=== PATIENT | male | born 1980 | race Caucasian/White ===

== ENCOUNTER 2019-04-07 20:08 | Emergency (ER) | payer MEDICAID, SELFPAY ==
[2019-04-07 20:09] VITALS: BP 124/74; PULSE 106; RESP 16; TEMP 36.6; O2SAT 99; BMI 20.3
--- NOTE | 2019-04-07 20:50 | ED.VISSUMM ---
- ER Visit Summary Date of Service: 04/07/19 Chief Complaint: [Redness and swelling to the left arm] History of Present Illness: The patient is a 38 M [presents to the emergency department with redness and swelling that started yesterday. Patient states that he injected methamphetamines into his left arm. He denies any fever. Patient is diabetic. Patient states that he had some leftover Cipro that he started taking. States that he only uses methamphetamines occasionally.] Physical Examination: [HEENT-PERRLA, EOMI. Cranial nerves II through XII grossly intact. TMs clear. Mucous membranes moist. No adenopathy. Cardiovascular-regular rate and rhythm without murmur or ectopy Lungs-clear to auscultation, chest wall stable without crepitus or subcu emphysema Abdomen-normoactive bowel sounds, soft, nontender, no rebound or rigidity, no peritoneal signs. Extremities-intact ?4, normal range of motion, normal pulses. Left arm-patient has diffuse erythema to the posterior forearm with some mild soft tissue swelling. No discrete abscess noted. No lipogenic streaking. He is neurovascular intact distally. Test Results: [CBC with the patient awakened at 10.7, hemoglobin 14, hematocrit 41, placed 244. Chemistries unremarkable. Lactate was 1.0. No gas otherwise seen within the forearm.] Emergency Department Course and Treatment: [She was given Unasyn 3 g IV.] Treatment Plan: [Patient will be started on Keflex and Bactrim. Patient advised to follow-up with his primary care physician within next 2 to 3 days for wound check. Patient advised to return if the redness should extend beyond the area of permanent marker that we outlined the erythema with.] Disposition: [Discharged home in stable condition.] Impression: [Cellulitis left forearm IV drug abuse] This note was generated with [employer] dictation software. It may contain incorrect words, spelling, and punctuation that were not noted in review of the chart prior to signing ED Disposition - Plan for ED Patient: Referrals: Yves Stokes MD [Primary Care Provider] -
--- NOTE | 2019-04-07 20:56 | ED.RN ---
Nurse did not get blood cultures prior to antibiotic administration. dr. canela aware
[2019-04-07 21:07] LABS: Absolute Lymphocyte Count 1.44 X10^3/uL (0.83-4.51); Absolute Neutrophil Count 7.6 X10^3/uL (2.0-7.7); Basophil# 0.05 X10^3/uL; Basophil% 0.5 % (0-1); Eosinophil# 0.81 X10^3/uL; Eosinophils% 7.6 % (0-5); Hematocrit 40.6 % (40-54); Lymphocyte # 1.44 X10^3/ul (4.0); Lymphocyte % 13.5 % (19-41); Mean Corp Hgb Conc 34.5 g/dL (32-36); Mean Corpuscular Volume 84.2 fL (80-94); Mean Platelet Vol. 9.5 fl (6.2-12.0); Monocyte# 0.72 X10^3/uL; Monocyte% 6.7 % (0-10); NRBC Flagged by Analyzer 0 % (0-5); Neutrophil # 7.61 X10^3/uL (2.7-7.7); Neutrophil % 71.3 % (47-70); Platelet Count 244 K/mm3 (150-450); RBC Distribution Width CV 12.2 % (11.6-14.6); RBC Distribution Width SD 36.9 fl (35.1-43.9); Red Blood Count 4.82 M/mm3 (4.6-6.2); White Blood Count 10.7 K/mm3 (4.4-11.0)
[2019-04-07 21:21] LABS: Anion Gap 6 (5-15); BUN 18 mg/dL (7-18); BUN/Creat Ratio 18.9 RATIO (10-20); Chloride 98 mmol/L (98-107); Creatinine, Serum 0.95 mg/dL (0.70-1.30); EST Glomerular Filtration Rate 94 mL/min (>60); Est Glom Filt Rate - Afr Amer 114 mL/min (>60); Estimated Creatinine Clearance 102.46 ml/min; Glucose 392 mg/dL (74-106); Potassium 3.9 mmol/L (3.5-5.1); Sodium Level 132 mmol/L (136-145)
--- NOTE | 2019-04-07 21:43 | RAD_ITS ---
STUDY: X-RAY - LEFT RADIUS AND ULNA REASON FOR EXAM: Male, 38 years old. Abscess. TECHNIQUE: 2 view(s) of the forearm. COMPARISON: None. FINDINGS: No fracture or dislocation. No destructive bone changes. Dorsomedial soft tissue gas consistent with history of abscess. Moderate dorsomedial soft tissue swelling. RAD/Forearm 2 Views IMPRESSION: Soft tissue swelling and soft tissue gas consistent with abscess. No osseous abnormality. Electronically Signed: Adelia Johnston MD at 22:17 EST Tel , Service support ,
--- NOTE | 2019-04-07 21:58 | ED.DEP ---
ED Disposition - Plan for ED Patient: Instructions: Cellulitis Prescriptions: Smz/Tmp Ds [Bactrim Ds] 1 tab PO BID #20 tab Prescription Printed Cephalexin [Keflex] 500 mg PO Q6 #40 cap Prescription Printed Referrals: Yves Stokes MD [Primary Care Provider] - 1-2 Days if not improving
[2019-04-07 22:15] VITALS: PULSE 94; RESP 18
== END 2019-04-07 22:19 | disposition home or self-care (01) ==
PROVIDERS: Emergency Provider Emergency Medicine; Family Provider Family Medicine; PCP Family Medicine
DX: L03.114 Cellulitis of left upper limb (principal); F19.10 Other psychoactive substance abuse, uncomplicated; E11.9 Type 2 diabetes mellitus without complications
CPT/HCPCS: 73090; 80048; 83605; 85025; 96365; 99284; A4216; J0295

== ENCOUNTER 2019-12-26 21:53 | Emergency (ER) | payer MEDICAID, SELFPAY ==
[2019-12-26 21:54] VITALS: BP 152/86; PULSE 99; RESP 18; TEMP 36.1; O2SAT 100; BMI 22.0
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
[2019-12-26] MEDS: Penicillin Vk 250 MG Tablet 500 MG PO (22:48)
== END 2019-12-26 22:49 | disposition home or self-care (01) ==
PROVIDERS: Emergency Provider Emergency Medicine; PCP Family Medicine
DX: S01.511A Laceration without foreign body of lip, initial encounter (principal); Y04.2XXA Assault by strike against or bumped into by another person, initial encounter; Y93.9 Activity, unspecified; Y92.9 Unspecified place or not applicable; Y99.9 Unspecified external cause status; E10.9 Type 1 diabetes mellitus without complications; B19.20 Unspecified viral hepatitis C without hepatic coma; F17.200 Nicotine dependence, unspecified, uncomplicated; Z79.4 Long term (current) use of insulin
CPT/HCPCS: 99283

== ENCOUNTER → 2020-09-04 19:35 | Outpatient (CLI) | payer MEDICAID, SELFPAY | PROVIDERS: PCP Family Medicine; Visit Provider Physician Assistant | DX: L72.3 Sebaceous cyst (principal) | CPT/HCPCS: 87070; 87077; 87186; 87205 ==

== ENCOUNTER 2020-10-11 13:29 | Emergency (ER) | payer MEDICAID, SELFPAY ==
[2020-10-11 13:30] VITALS: BP 122/84; PULSE 91; RESP 16; TEMP 36.7; O2SAT 100; BMI 21.6
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
[2020-10-11 15:01] LABS: Bedside Glucose 256 mg/dL (70-110)
[2020-10-11 15:03] VITALS: BP 116/75; PULSE 71; RESP 16; O2SAT 99
== END 2020-10-11 15:06 | disposition home or self-care (01) ==
PROVIDERS: Emergency Provider Emergency Medicine; PCP Family Medicine
DX: E10.649 Type 1 diabetes mellitus with hypoglycemia without coma (principal); F17.200 Nicotine dependence, unspecified, uncomplicated; Z79.4 Long term (current) use of insulin
CPT/HCPCS: 82962; 99284

== ENCOUNTER → 2020-12-01 12:03 | Outpatient (CLI) | payer MEDICAID, SELFPAY ==
[2020-12-01 11:36] VITALS: BMI 21.6
[2020-12-01 12:54] LABS: Absolute Lymphocyte Count 1.66 X10^3/uL (0.83-4.51); Absolute Neutrophil Count 2.9 X10^3/uL (2.0-7.7); Basophil# 0.04 X10^3/uL; Basophil% 0.7 % (0-1); Eosinophil# 0.97 X10^3/uL; Eosinophils% 16.5 % (0-5); Hematocrit 39.5 % (40-54); Hemoglobin 13.1 g/dL (13.0-16.5); Lymphocyte # 1.66 X10^3/ul (0.83-4.51); Lymphocyte % 28.2 % (19-41); Mean Corp Hgb Conc 33.2 g/dL (32-36); Mean Corpuscular Hgb 28.9 pg (27.0-32.0); Mean Platelet Vol. 9.8 fl (6.2-12.0); Monocyte# 0.36 X10^3/uL; Monocyte% 6.1 % (0-10); NRBC Flagged by Analyzer 0 % (0-5); Neutrophil # 2.85 X10^3/uL (2.7-7.7); Neutrophil % 48.3 % (47-70); Platelet Count 287 K/mm3 (150-450); RBC Distribution Width CV 12.3 % (11.6-14.6); RBC Distribution Width SD 39.3 fl (35.1-43.9); Red Blood Count 4.54 M/mm3 (4.6-6.2); White Blood Count 5.9 K/mm3 (4.4-11.0)
[2020-12-01 13:34] LABS: ALB/GLOB Ratio 0.8 RATIO (0.9-2.4); AST(SGOT) 36 U/L (15-37); Alanine Aminotransfer ALT/SGPT 61 U/L (16-61); Albumin, Serum 3.1 g/dL (3.2-5.0); Alkaline Phosphatase 111 U/L (45-117); Anion Gap 4 (5-15); BUN 16 mg/dL (7-18); BUN/Creat Ratio 14.7 RATIO (10-20); Calcium,Total 8.7 mg/dL (8.5-10.1); Chloride 100 mmol/L (98-107); Cholesterol 159 mg/dL (200); Creatinine, Serum 1.09 mg/dL (0.70-1.30); EST Glomerular Filtration Rate 80 mL/min (>60); Est Glom Filt Rate - Afr Amer 97 mL/min (>60); Globulin 3.7 g/dL (2.2-4.2); Glucose 362 mg/dL (74-106); High Density Lipoprotein 45 mg/dL; Potassium 4.6 mmol/L (3.5-5.1); Protein, Total 6.8 g/dL (6.4-8.2); Sodium Level 134 mmol/L (136-145); Triglycerides 179 mg/dL; Very Low Density Lipoprotein 36 mg/dL (5-40)
[2020-12-01 16:26] LABS: Microalbumin:Creatinine Ratio 220.8 mg/g CRE (<30 mg/g CRE)
[2020-12-01 16:31] LABS: Amphetamine Urine VISTA POSITIVE (<1000 ng/mL); Barbiturate Urine VISTA NEGATIVE (< 200 ng/mL); Benzodiazepine Urine VISTA NEGATIVE (< 200 ng/mL); Cocaine Urine VISTA NEGATIVE (< 300 ng/mL); Ecstacy Urine VISTA POSITIVE (< 500 ng/mL); Methadone Urine VISTA NEGATIVE (< 300 ng/mL); PCP Urine VISTA NEGATIVE (< 25 ng/mL); THC Urine VISTA NEGATIVE (< 50 ng/mL); Vista UDS pH Range 7
[2020-12-02 14:41] LABS: HCV log 10 5.954 (.)
== END ==
PROVIDERS: PCP Internal Medicine; Referring Provider Internal Medicine; Visit Provider Internal Medicine
DX: E10.8 Type 1 diabetes mellitus with unspecified complications (principal); B19.20 Unspecified viral hepatitis C without hepatic coma
CPT/HCPCS: 36415; 80053; 80061; 80307; 82043; 82570; 85025; 87522

== ENCOUNTER 2020-12-08 11:19 | Emergency (ER) | payer MEDICAID, SELFPAY ==
[2020-12-01 11:36] VITALS: BMI 21.6
[2020-12-08 11:20] VITALS: BP 127/64; PULSE 101; RESP 14; TEMP 36.1; O2SAT 97; BMI 20.9
[2020-12-08] MEDS: Smz/Tmp Ds Tablet 1 TABLET PO (12:50)
[2020-12-08] MEDS: Lidocaine 1% (20 ml mdv) 20 ML Vial INFILT (12:50)
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
== END 2020-12-08 14:06 | disposition home or self-care (01) ==
PROVIDERS: Emergency Provider Emergency Medicine; PCP Internal Medicine
DX: L02.413 Cutaneous abscess of right upper limb (principal); E11.9 Type 2 diabetes mellitus without complications; F17.210 Nicotine dependence, cigarettes, uncomplicated; Z79.4 Long term (current) use of insulin; Z86.14 Personal history of Methicillin resistant Staphylococcus aureus infection
CPT/HCPCS: 10060; 99283

== ENCOUNTER 2022-10-14 03:10 | Emergency (ER) | payer MEDICAID, SELFPAY ==
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
[2022-10-14 08:59] VITALS: BP 110/88; PULSE 68; RESP 16; O2SAT 99
[2022-10-14 13:36] LABS: Bedside Glucose 227 mg/dL (74-106)
[2022-10-14 13:36] LABS: Bedside Glucose 121 mg/dL (74-106)
[2022-10-14 13:37] LABS: Bedside Glucose 226 mg/dL (74-106)
[2022-10-14 13:37] LABS: Bedside Glucose 90 mg/dL (74-106)
== END 2022-10-14 09:02 | disposition home or self-care (01) ==
PROVIDERS: Emergency Provider Emergency Medicine; PCP Family Medicine; Visit Provider Emergency Medicine
DX: T38.3X1A Poisoning by insulin and oral hypoglycemic [antidiabetic] drugs, accidental (unintentional), initial encounter (principal); E10.649 Type 1 diabetes mellitus with hypoglycemia without coma; Z79.4 Long term (current) use of insulin; F17.210 Nicotine dependence, cigarettes, uncomplicated
CPT/HCPCS: 36415; 82962; 99285; A4216

== ENCOUNTER 2024-01-28 00:39 | Emergency (ER) | payer MEDICAID, SELFPAY ==
[2024-01-28 00:40] VITALS: BP 130/81; PULSE 101; RESP 16; TEMP 36.1; O2SAT 100; BMI 21.1
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
[2024-01-28] MEDS: Lidocaine 1% (20 ml mdv) 20 ML Vial 4 ML INFILT (01:24)
[2024-01-28] MEDS: Diphth,Pertuss(Acell),Tet Vac 0.5 ML Vial IM (01:24)
== END 2024-01-28 01:29 | disposition home or self-care (01) ==
PROVIDERS: Emergency Provider Emergency Medicine; PCP Family Medicine; Visit Provider Emergency Medicine
DX: S61.210A Laceration without foreign body of right index finger without damage to nail, initial encounter (principal); E11.9 Type 2 diabetes mellitus without complications; Z79.4 Long term (current) use of insulin; F17.210 Nicotine dependence, cigarettes, uncomplicated; W26.0XXA Contact with knife, initial encounter; Y93.89 Activity, other specified
CPT/HCPCS: 12001; 90715; 99285

== ENCOUNTER 2024-05-23 10:39 | Emergency (ER) | payer MEDICAID, SELFPAY ==
[2024-05-23 10:40] VITALS: BP 101/88; PULSE 120; RESP 14; TEMP 37.1; O2SAT 94; BMI 20.3
--- NOTE | 2024-05-23 11:05 | EKG12_ITS ---
Test Reason : GEN ILLNESS Blood Pressure : */* mmHG Vent. Rate : 87 BPM Atrial Rate : 87 BPM P-R Int : 136 ms QRS Dur : 100 ms QT Int : 382 ms P-R-T Axes : 85 104 55 degrees QTcB Int : 459 ms Normal sinus rhythm Right atrial enlargement Rightward axis Pulmonary disease pattern Abnormal ECG Confirmed by LAUREN CLAY, LACHO ([id number]), editor news LOVE CONTRERAS ([id number]) on 05/25/2024 6:23:57 AM Referred By: Confirmed By: LACHO AGUILAR MD
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
[2024-05-23 11:14] LABS: Absolute Lymphocyte Count 0.93 X10^3/uL (0.83-4.51); Basophil# 0.07 X10^3/uL; Basophil% 0.5 % (0-1); Eosinophils% 3.3 % (0-5); Hematocrit 49.9 % (40-54); Lymphocyte # 0.93 X10^3/ul (0.83-4.51); Mean Corp Hgb Conc 34.1 g/dL (32-36); Mean Corpuscular Hgb 28.8 pg (27.0-32.0); Mean Corpuscular Volume 84.4 fL (80-94); Mean Platelet Vol. 9.4 fl (6.2-12.0); Monocyte# 0.83 X10^3/uL; Monocyte% 5.4 % (0-10); NRBC Flagged by Analyzer 0 % (0-5); Neutrophil # 12.96 X10^3/uL (2.7-7.7); Neutrophil % 84.2 % (47-70); Platelet Count 365 K/mm3 (150-450); RBC Distribution Width CV 12.5 % (11.6-14.6); RBC Distribution Width SD 37.8 fl (35.1-43.9); Red Blood Count 5.91 M/mm3 (4.6-6.2); White Blood Count 15.4 K/mm3 (4.4-11.0)
[2024-05-23] MEDS: 0.9% Normal Saline (1000mL) 1,000 ML 1000 ML IV (11:15)
[2024-05-23] MEDS: Ondansetron 4 MG/2 ML Vial IV (11:15)
[2024-05-23 11:16] LABS: Bedside Glucose 275 mg/dL (74-106)
[2024-05-23 11:23] VITALS: BP 94/67; PULSE 85; RESP 12; O2SAT 100
[2024-05-23 11:38] LABS: AST(SGOT) 57 U/L (15-37); Alanine Aminotransfer ALT/SGPT 111 U/L (16-61); Albumin, Serum 3.9 g/dL (3.2-5.0); Alkaline Phosphatase 145 U/L (45-117); Anion Gap 8 (5-15); BUN 19 mg/dL (7-18); BUN/Creat Ratio 11.1 RATIO (10-20); Bilirubin, Direct 0.16 mg/dL (0.00-0.30); Chloride 99 mmol/L (98-107); Creatinine, Serum 1.71 mg/dL (0.70-1.30); EST Glomerular Filtration Rate 47 mL/min (>60); Est Glom Filt Rate - Afr Amer 57 mL/min (>60); Estimated Creatinine Clearance 54.16 ml/min; Globulin 4.8 g/dL (2.2-4.2); Glucose 297 mg/dL (74-106); Protein, Total 8.7 g/dL (6.4-8.2); Sodium Level 134 mmol/L (136-145)
[2024-05-23 12:08] VITALS: BP 108/56; PULSE 94; RESP 16; O2SAT 100
[2024-05-23] MEDS: 0.9% Normal Saline (1000mL) 1,000 ML 250 ML IV (12:08)
[2024-05-23 13:07] VITALS: BP 122/71
== END 2024-05-23 13:08 | disposition home or self-care (01) ==
PROVIDERS: Emergency Provider Emergency Medicine; PCP Family Medicine; Visit Provider Emergency Medicine
DX: R19.7 Diarrhea, unspecified (principal); E11.9 Type 2 diabetes mellitus without complications; Z79.4 Long term (current) use of insulin; R55 Syncope and collapse; R10.9 Unspecified abdominal pain; F17.210 Nicotine dependence, cigarettes, uncomplicated; F12.90 Cannabis use, unspecified, uncomplicated
CPT/HCPCS: 80048; 80076; 82009; 82962; 85025; 93005; 96361; 96374; 99284; A4216; J2405

== ENCOUNTER 2024-07-06 18:13 | Emergency (ER) | payer OTHER, MEDICAID, SELFPAY ==
[2024-07-06 18:14] VITALS: BP 103/68; PULSE 122; RESP 16; TEMP 36; O2SAT 98; BMI 21.2
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
[2024-07-06 19:02] LABS: Bedside Glucose 171 mg/dL (74-106)
[2024-07-06] MEDS: Ondansetron 4 MG/2 ML Vial IV (19:19)
[2024-07-06] MEDS: 0.9% Normal Saline (1000mL) 1,000 ML 1000 ML IV (19:19)
[2024-07-06 19:24] LABS: Absolute Lymphocyte Count 0.87 X10^3/uL (0.83-4.51); Absolute Neutrophil Count 4.1 X10^3/uL (2.0-7.7); Basophil# 0.04 X10^3/uL; Basophil% 0.7 % (0-1); Eosinophil# 0.28 X10^3/uL; Eosinophils% 4.7 % (0-5); Hematocrit 37.9 % (40-54); Hemoglobin 13.2 g/dL (13.0-16.5); Lymphocyte # 0.87 X10^3/ul (0.83-4.51); Lymphocyte % 14.5 % (19-41); Mean Corp Hgb Conc 34.8 g/dL (32-36); Mean Corpuscular Hgb 29.2 pg (27.0-32.0); Mean Corpuscular Volume 83.8 fL (80-94); Mean Platelet Vol. 9.5 fl (6.2-12.0); Monocyte# 0.68 X10^3/uL; Monocyte% 11.4 % (0-10); NRBC Flagged by Analyzer 0 % (0-5); Neutrophil # 4.09 X10^3/uL (2.7-7.7); Neutrophil % 68.2 % (47-70); Platelet Count 268 K/mm3 (150-450); RBC Distribution Width CV 12.7 % (11.6-14.6); RBC Distribution Width SD 38.7 fl (35.1-43.9); Red Blood Count 4.52 M/mm3 (4.6-6.2)
[2024-07-06 19:25] LABS: Blood Gas Specimen Type VEN; O2 Delivery Device Room Air; SITE Not entered; VBG BASE EXCESS -1 mmol/L (-1.0-3.5); VBG Bicarbonate 24 mmol/L (22-26); VBG PO2 54 mmHg (25-40); VBG SO2 87 % (50-70); VBG TCO2 25 mmol/L (23-33); VBG pH 7.37 (7.32-7.42)
[2024-07-06 19:36] LABS: Anion Gap 6 (5-15); BUN 17 mg/dL (7-18); BUN/Creat Ratio 16.8 RATIO (10-20); Calcium,Total 8.5 mg/dL (8.5-10.1); Chloride 104 mmol/L (98-107); Creatinine, Serum 1.01 mg/dL (0.70-1.30); EST Glomerular Filtration Rate 86 mL/min (>60); Est Glom Filt Rate - Afr Amer 104 mL/min (>60); Estimated Creatinine Clearance 94.51 ml/min; Glucose 179 mg/dL (74-106); Potassium 3.7 mmol/L (3.5-5.1); Sodium Level 135 mmol/L (136-145)
[2024-07-06 19:55] LABS: Bacteria 0 SEEN /hpf (None Seen); Squamous Epithelial Cells - UA 0 SEEN /hpf (0-5)
--- NOTE | 2024-07-06 19:55 | CT_ITS ---
PROCEDURE: ABDOMEN/PELVIS W IV CONT ONLY REASON FOR EXAM: Abdominal pain TECHNIQUE: Abdomen and pelvis CT with intravenous contrast. Multiplanar reconstructions were performed. COMPARISON: None. FINDINGS: Lower chest: Unremarkable. Liver: Unremarkable. Biliary/gallbladder: There are multiple gallstones in the gallbladder lumen. Pancreas: Unremarkable. Spleen: Unremarkable. Adrenal glands: Unremarkable. Kidneys: Unremarkable. Gastrointestinal/peritoneum: There are multiple dilated loops of small bowel, mostly ileal loops in the right hemiabdomen measuring up to 3.3 cm in diameter. There is no discrete transition point.The appendix is unremarkable.No free air or free fluid. Vascular: Unremarkable. Lymph nodes: No enlarged lymph nodes by CT size criteria. Pelvic organs: Unremarkable. Bladder: Mild diffuse bladder wall thickening, which is somewhat exaggerated by partial distention. Bones: Unremarkable. Soft tissues: Unremarkable. CT/Abdomen/Pelvis W IV Cont ONLY IMPRESSION: 1. Multiple dilated loops of small bowel in the right hemiabdomen without a tra nsition point, possibly due to ileus. 2. Mild diffuse bladder wall thickening, somewhat exaggerated by partial disten tion. Correlate clinically to exclude cystitis. 3. Cholelithiasis. Reading Location: [facility]
[2024-07-06 19:57] LABS: Glucose, Dipstick 100 mg/dl (Normal); Ketone-Dipstick 5 mg/dl (Negative); Leukocyte Esterase-Dipstick 25 /ul (Negative); Nitrite-Dipstick Positive (Negative); Occult Blood-Urine 10 /ul (Negative); Protein-Dipstick 100 mg/dl (Negative); Urine Clarity Clear (Clear); Urine Urobilinogen 1 mg/dl (Normal)
[2024-07-06 20:03] LABS: Urine Bilirubin Dipstick 3 mg/dL (Negative)
[2024-07-06 20:04] LABS: Color, Urine Amber (Yellow)
[2024-07-06 20:13] VITALS: BP 122/71; PULSE 103; O2SAT 98
[2024-07-06 20:31] LABS: Hyaline Cast 25-50 SEEN /lpf (0-5); Mucous, Urine 1+ /hpf (<or=2+); Red Blood Cells-Urine 0-5 SEEN /hpf (0-5); White Blood Cells 0-5 SEEN /hpf (0-5)
[2024-07-06 20:32] LABS: Amorphous Sediment 1+ URATE; Coarse Granular Cast 5-10 SEEN /lpf (0-5 /lpf); Fine Granular Cast- Urine 5-10 SEEN /lpf (0-5)
[2024-07-06 21:22] VITALS: BP 131/74; PULSE 102; RESP 18; TEMP 36.3; O2SAT 99
== END 2024-07-06 21:25 | disposition home or self-care (01) ==
PROVIDERS: Emergency Provider Emergency Medicine; PCP Family Medicine; Visit Provider Emergency Medicine
DX: R10.9 Unspecified abdominal pain (principal); E10.9 Type 1 diabetes mellitus without complications; Z79.4 Long term (current) use of insulin; R11.0 Nausea; F17.210 Nicotine dependence, cigarettes, uncomplicated; F12.90 Cannabis use, unspecified, uncomplicated; R19.7 Diarrhea, unspecified
CPT/HCPCS: 74177; 80048; 81001; 82009; 82803; 82962; 85025; 87631; 96361; 96374; 99282; Q9967; A4216; J2405

== ENCOUNTER 2025-03-01 10:48 | Emergency (ER) | payer MEDICAID, SELFPAY ==
[2025-03-01 10:50] VITALS: BP 107/93; PULSE 95; RESP 18; TEMP 36.6; O2SAT 100; BMI 21.8
[2025-03-01 11:01] VITALS: BP 109/75
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
[2025-03-01 11:21] LABS: Hematocrit 46.5 % (40-54); Hemoglobin 15.7 g/dL (13.0-16.5); Immature Granulocytes Count 0.060 X10^3/uL (0.0-0.0); Mean Corp Hgb Conc 33.8 g/dL (32-36); Mean Corpuscular Volume 85.6 fL (80-94); Mean Platelet Vol. 9.3 fl (6.2-12.0); NRBC Flagged by Analyzer 0 % (0-5); POSITIVE DIFFERENTIAL YES; Platelet Count 362 K/mm3 (150-450); RBC Distribution Width CV 12.8 % (11.6-14.6); RBC Distribution Width SD 39.4 fl (35.1-43.9); Red Blood Count 5.43 M/mm3 (4.6-6.2); White Blood Count 12.7 K/mm3 (4.4-11.0)
[2025-03-01 11:46] LABS: AST(SGOT) 72 U/L (<=37); Alanine Aminotransfer ALT/SGPT 108 U/L (<=46); Albumin, Serum 4.1 g/dL (3.5-5.0); Alcohol, Blood (Medical)-Serum < 10.1 mg/dL (<=10.0); Alkaline Phosphatase 139 U/L (40-129); Anion Gap 12 (5-15); BUN 21 mg/dL (4-19); BUN/Creat Ratio 14.7 RATIO (10-20); Calcium,Total 9.7 mg/dL (7.6-11.0); Carbon Dioxide 23.6 mmol/L (21.0-32.0); Chloride 105 mmol/L (98-108); Estimated Creatinine Clearance 68.39 ml/min (50-250); Globulin 3.6 g/dL (2.2-4.2); Glucose 61 mg/dL (70-99); Lipase 11 U/L (13-75); Potassium 3.3 mmol/L (3.3-5.1)
--- NOTE | 2025-03-01 12:20 | CT_ITS ---
PROCEDURE: ABDOMEN/PELVIS W IV CONT ONLY 03/01/2025 REASON FOR EXAM: ABD PAIN TECHNIQUE: Procedure Code: [id number] Modality: CT Procedure: ABDOMEN/PELVIS W IV CONT ONLY Coronal and Sagittal reconstruction series were provided. CONTRAST: Isovue-300 VOLUME: 96 mL One or more dose reduction techniques were used (e.g., Automated exposure control, adjustment of the mA and/or kV according to patient size, use of iterative reconstruction technique. RADIATION DOSE SUMMARY: CTDlvol: 18 mGy DLP: 413 mGycm COMPARISON: July 06, 2024 FINDINGS: Lung bases: Clear Liver: Normal Gallbladder: Multiple calculi within the gallbladder lumen. No wall thickening. No biliary ductal dilation. Spleen: Normal Pancreas: Normal Adrenals: Normal Kidneys: Normal Bladder: Normal. Reproductive Organs: Normal Bowel: Stomach is mildly distended and fluid-filled. Proximal and mid small bowel loops are not dilated. More distal small bowel loops are not particularly dilated but are fluid-filled without any wall thickening, pneumatosis. The contents of the colon are fluid suggesting a diarrheal state. Appendix: Normal Lymph nodes: None appear enlarged. Vasculature: Normal Peritoneum / Retroperitoneum: No free air, free fluid or mass Bones: Unremarkable CT/Abdomen/Pelvis W IV Cont ONLY IMPRESSION: Fluid-filled loops of distal small bowel. Fluid-filled colon. No transition p oint to suggest a mechanical obstruction seen. A similar finding was seen on prior exam. The degree of involvement of the small bowel is less on today's exam. Consider small-bowel ileus, partial small bowel obstruction and colonic diarrheal state. Correlate with CT of July 06, 2024. Reading Location: [id number]
--- NOTE | 2025-03-01 12:25 | RAD_ITS ---
PROCEDURE: CHEST PA AND LATERAL 03/01/2025 REASON FOR EXAM: RULE OUT PNEUMONIA TECHNIQUE: Procedure Code: RADCXR Modality: DX Procedure: CHEST PA AND LATERAL COMPARISON: None FINDINGS: Hardware: Bilateral nipple piercings. Heart: Normal Mediastinum: The mediastinal contour is unremarkable. Lungs: The lungs are clear. Bones: The bones are unremarkable. RAD/Chest PA and Lateral IMPRESSION: No acute cardiopulmonary process Reading Location: [id number]
[2025-03-01 13:00] VITALS: BP 120/75; PULSE 97; RESP 18; O2SAT 100
[2025-03-01 14:00] VITALS: BP 137/99; PULSE 99; O2SAT 100
[2025-03-01 14:07] LABS: Mucous, Urine 0 SEEN /hpf (<or=2+)
[2025-03-01 14:10] LABS: Color, Urine Yellow (Yellow); Glucose, Dipstick 250 mg/dl (Normal); Ketone-Dipstick Negative (Negative); Leukocyte Esterase-Dipstick Negative /ul (Negative); Nitrite-Dipstick Negative (Negative); Occult Blood-Urine 10 /ul (Negative); Protein-Dipstick 100 mg/dl (Negative); Specific Gravity, Urine 1.015 (1.002-1.030); Urine Bilirubin Dipstick Negative (Negative)
[2025-03-01 14:36] LABS: Red Blood Cells-Urine 0-5 SEEN /hpf (0-5); Squamous Epithelial Cells - UA 0-5 SEEN /hpf (0-5)
[2025-03-01 15:00] VITALS: BP 108/88; PULSE 103; RESP 16; O2SAT 99
--- NOTE | 2025-03-01 15:53 | ED.RN ---
pt was given 1 L NS during stay
[2025-03-01 15:56] VITALS: BP 132/88; PULSE 95; RESP 18; TEMP 36.8; O2SAT 100
== END 2025-03-01 15:59 | disposition home or self-care (01) ==
PROVIDERS: Emergency Provider Student in an Organized Health Care Education/Training Program; PCP Family Medicine; Visit Provider Student in an Organized Health Care Education/Training Program
DX: E10.649 Type 1 diabetes mellitus with hypoglycemia without coma (principal); Z79.4 Long term (current) use of insulin; R11.2 Nausea with vomiting, unspecified; R10.9 Unspecified abdominal pain; R19.7 Diarrhea, unspecified; F17.210 Nicotine dependence, cigarettes, uncomplicated; F12.90 Cannabis use, unspecified, uncomplicated
CPT/HCPCS: 71046; 74177; 80053; 81001; 82077; 82962; 83605; 83690; 85025; 93005; 99285; Q9967; A4216

== ENCOUNTER 2025-05-01 00:57 | Emergency (ER) | payer MEDICAID, SELFPAY ==
[2025-05-01 00:58] VITALS: BP 210/109; PULSE 96; RESP 16; TEMP 36.4; O2SAT 100; BMI 20.5
[2025-05-01 01:01] VITALS: BP 184/96
[2025-05-01] MEDS: Lidocaine 2% /Epi 1:100 (20ml) 20 ML VIAL INFILT (01:24)
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
--- OUTSIDE RECORDS SUMMARY | 2025-05-01 01:24 | XMS RPT_ITS | CCD ---
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 Date Expiration Date Visits Requested Visits Authorized [id number] Authorized PCP Requested Referral 08/30/2022 08/30/2023 1 1 Specialty Diagnoses / Procedures Referred By Contac t Referred To Contact Endocrinology Diagnoses Type 1 diabetes mellitus without complication (HCC) Procedures CONSULT TO ENDOCRINOLOGY OFFICE/OUTPATIENT [facility] 60-74 MINUTES Letha Stokes MD [address] [place] [address] Referral ID Status Reason Start Date Expiration Date Visits Requested Visits Authorized [id number] Authorized PCP Requested Referral 08/30/2022 08/30/2023 1 1 Specialty Diagnoses / Procedures Referred By Contac t Referred To Contact Diagnoses Type 1 diabetes mellitus without complication (HCC) Procedures CONSULT TO DIABETES EDUCATION DSME/MNT MEDICAL NUTRITION ASSMT&IVNTJ INDIV EACH 15 NC MEDICAL NUTRITION ASSMT&IVNTJ INDIV EACH 15 [place] MEDICAL NUTRITION ASSMT&IVNTJ INDIV EACH 15 [place] MEDICAL NUTRITION ASSMT&IVNTJ INDIV EACH 15 NC Laura Cook, P[employer]HANGER [employer]GAN FIXER [address] [place] [address] Referral ID Status Reason Start Date Expiration Date Visits Requested Visits Authorized [id number] Authorized PCP Requested Referral 09/09/2022 09/09/2023 1 1 Specialty Diagnoses / Procedures Referred By Contac t Referred To Contact Diagnoses Type 1 diabetes mellitus without complication (HCC) Laura Cook, P[employer]HANGER [employer]GAN [employer]ER [address] [place] [address] Referral ID Status Reason Start Date Expiration Date Visits Re quested Visits Authorized [id number] Closed 1 1 Specialty Diagnoses / Procedures Referred By Contac t Referred To Contact Ophthalmology Diagnoses Type 1 diabetes mellitus without complication (HCC) Procedures CONSULT TO OPHTHALMOLOGY OFFICE/OUTPATIENT NEW [facility]IGH MDM 60 MINUTES Laura Cook P[employer]ER [employer]ER [address] [place] [id number] Referral ID Status Reason Start Date Expiration Date Visits Requested Visits Authorized [id number] Authorized PCP Requested Referral 08/31/2023 11/29/2023 1 1 Specialty Diagnoses / Procedures Referred By Contac t Referred To Contact Diagnoses Poorly controlled type 1 diabetes mellitus (HCC) Procedures ENDOCRINOLOGY DIETITIAN VISIT (MNT) MEDICAL NUTRITION ASSMT&IVNTJ INDIV EACH 15 [place] MEDICAL NUTRITION ASSMT&IVNTJ INDIV EACH 15 [place] MEDICAL NUTRITION ASSMT&IVNTJ INDIV EACH 15 [place] MEDICAL NUTRITION ASSMT&IVNTJ INDIV EACH 15 [place] Laura Cook, P[employer]HANGER [employer]ER [address] [place] [id number] Referral ID Status Reason Start Date Expiration Date Visits Requested Visits Authorized [id number] Authorized PCP Requested Referral 06/20/2024 06/20/2025 1 1 Chief Complaint and Reason for Visit Chief Complaint Admit Date n/v/d March 01, 2025 1 0:48am Additional Source Comments (unrecognized sect ion and content) No Status Records FoundNo Status Records FoundNo Status Records FoundNo Status Records FoundNo Status Records Found INFORMATION SOURCE (unrecogn ized section and content) DATE CREATED AUTHOR 11/15/2017 [facility] DATE CREATED AUTHOR AUTHOR'S ORGANIZ ATION 08/22/2024 [facility] DATE CREATED AUTHOR AUTHOR'S ORGANIZ ATION 03/08/2025 [facility] DATE CREATED AUTHOR AUTHOR'S ORGANIZ ATION 03/09/2025 [facility] Source Comments (unrecognize d section and content) In the event this informatio n is protected by the Federal Confidentiality of Alcohol and Drug Abuse Patient Records regulations: The Federal rules restrict any use of the information to criminally investigate or prosecute any alcohol or drug abuse patient.[facility] Hospital[facility] the event this information is protected by the Federal Confidentiality of Alcohol and Drug Abuse Patient Records regulations: The Federal rules restrict any use of the information to criminally investigate or prosecute any alcohol or drug abuse patient.[facility] HospitalIn the event this information is protected by the Federal Confidentiality of Alcohol and Drug Abuse Patient Records regulations: The Federal rules restrict any use of the information to criminally investigate or prosecute any alcohol or drug abuse patient.[facility] HospitalIn the event this information is protected by the Federal Confidentiality of Alcohol and Drug Abuse Patient Records regulations: The Federal rules restrict any use of the information to criminally investigate or prosecute any alcohol or drug abuse patient.[facility] HospitalIn the event this information is protected by the Federal Confidentiality of Alcohol and Drug Abuse Patient Records regulations: The Federal rules restrict any use of the information to criminally investigate or prosecute any alcohol or drug abuse patient.[facility] HospitalIn the event this information is protected by the Federal Confidentiality of Alcohol and Drug Abuse Patient Records regulations: The Federal rules restrict any use of the information to criminally investigate or prosecute any alcohol or drug abuse patient.[facility] HospitalIn the event this information is protected by the Federal Confidentiality of Alcohol and Drug Abuse Patient Records regulations: The Federal rules restrict any use of the information to criminally investigate or prosecute any alcohol or drug abuse patient.[facility] HospitalIn the event this information is protected by the Federal Confidentiality of Alcohol and Drug Abuse Patient Records regulations: The Federal rules restrict any use of the information to criminally investigate or prosecute any alcohol or drug abuse patient.[facility] HospitalIn the event this information is protected by the Federal Confidentiality of Alcohol and Drug Abuse Patient Records regulations: The Federal rules restrict any use of the information to criminally investigate or prosecute any alcohol or drug abuse patient.[facility] HospitalIn the event this information is protected by the Federal Confidentiality of Alcohol and Drug Abuse Patient Records regulations: The Federal rules restrict any use of the information to criminally investigate or prosecute any alcohol or drug abuse patient.[facility] HospitalIn the event this information is protected by the Federal Confidentiality of Alcohol and Drug Abuse Patient Records regulations: The Federal rules restrict any use of the information to criminally investigate or prosecute any alcohol or drug abuse patient.[facility] HospitalIn the event this information is protected by the Federal Confidentiality of Alcohol and Drug Abuse Patient Records regulations: The Federal rules restrict any use of the information to criminally investigate or prosecute any alcohol or drug abuse patient.[facility] HospitalIn the event this information is protected by the Federal Confidentiality of Alcohol and Drug Abuse Patient Records regulations: The Federal rules restrict any use of the information to criminally investigate or prosecute any alcohol or drug abuse patient.[facility] HospitalIn the event this information is protected by the Federal Confidentiality of Alcohol and Drug Abuse Patient Records regulations: The Federal rules restrict any use of the information to criminally investigate or prosecute any alcohol or drug abuse patient.[facility] HospitalIn the event this information is protected by the Federal Confidentiality of Alcohol and Drug Abuse Patient Records regulations: The Federal rules restrict any use of the information to criminally investigate or prosecute any alcohol or drug abuse patient.[facility] HospitalIn the event this information is protected by the Federal Confidentiality of Alcohol and Drug Abuse Patient Records regulations: The Federal rules restrict any use of the information to criminally investigate or prosecute any alcohol or drug abuse patient.[facility] HospitalIn the event this information is protected by the Federal Confidentiality of Alcohol and Drug Abuse Patient Records regulations: The Federal rules restrict any use of the information to criminally investigate or prosecute any alcohol or drug abuse patient.[facility] HospitalIn the event this information is protected by the Federal Confidentiality of Alcohol and Drug Abuse Patient Records regulations: The Federal rules restrict any use of the information to criminally investigate or prosecute any alcohol or drug abuse patient.[facility] HospitalIn the event this information is protected by the Federal Confidentiality of Alcohol and Drug Abuse Patient Records regulations: The Federal rules restrict any use of the information to criminally investigate or prosecute any alcohol or drug abuse patient.[facility] HospitalIn the event this information is protected by the Federal Confidentiality of Alcohol and Drug Abuse Patient Records regulations: The Federal rules restrict any use of the information to criminally investigate or prosecute any alcohol or drug abuse patient.[facility] HospitalIn the event this information is protected by the Federal Confidentiality of Alcohol and Drug Abuse Patient Records regulations: The Federal rules restrict any use of the information to criminally investigate or prosecute any alcohol or drug abuse patient.[facility] HospitalIn the event this information is protected by the Federal Confidentiality of Alcohol and Drug Abuse Patient Records regulations: The Federal rules restrict any use of the information to criminally investigate or prosecute any alcohol or drug abuse patient.[facility] HospitalIn the event this information is protected by the Federal Confidentiality of Alcohol and Drug Abuse Patient Records regulations: The Federal rules restrict any use of the information to criminally investigate or prosecute any alcohol or drug abuse patient.[facility] HospitalIn the event this information is protected by the Federal Confidentiality of Alcohol and Drug Abuse Patient Records regulations: The Federal rules restrict any use of the information to criminally investigate or prosecute any alcohol or drug abuse patient.[facility] HospitalIn the event this information is protected by the Federal Confidentiality of Alcohol and Drug Abuse Patient Records regulations: The Federal rules restrict any use of the information to criminally investigate or prosecute any alcohol or drug abuse patient.[facility] HospitalIn the event this information is protected by the Federal Confidentiality of Alcohol and Drug Abuse Patient Records regulations: The Federal rules restrict any use of the information to criminally investigate or prosecute any alcohol or drug abuse patient.[facility] HospitalIn the event this information is protected by the Federal Confidentiality of Alcohol and Drug Abuse Patient Records regulations: The Federal rules restrict any use of the information to criminally investigate or prosecute any alcohol or drug abuse patient.[facility] HospitalIn the event this information is protected by the Federal Confidentiality of Alcohol and Drug Abuse Patient Records regulations: The Federal rules restrict any use of the information to criminally investigate or prosecute any alcohol or drug abuse patient.[facility] HospitalIn the event this information is protected by the Federal Confidentiality of Alcohol and Drug Abuse Patient Records regulations: The Federal rules restrict any use of the information to criminally investigate or prosecute any alcohol or drug abuse patient.[facility] HospitalIn the event this information is protected by the Federal Confidentiality of Alcohol and Drug Abuse Patient Records regulations: The Federal rules restrict any use of the information to criminally investigate or prosecute any alcohol or drug abuse patient.[facility] HospitalIn the event this information is protected by the Federal Confidentiality of Alcohol and Drug Abuse Patient Records regulations: The Federal rules restrict any use of the information to criminally investigate or prosecute any alcohol or drug abuse patient.[facility] HospitalIn the event this information is protected by the Federal Confidentiality of Alcohol and Drug Abuse Patient Records regulations: The Federal rules restrict any use of the information to criminally investigate or prosecute any alcohol or drug abuse patient.[facility] Reason for Visit (unrecogniz ed section and content) Reason Comments Refill Request Reason Comments Results Reason Comments Follow Up DM- patient reports Rx for Basaglar listed as 14 units at HS instead of 42. Patient is almost out of insulin. Reason Comments Insulin Dependent Diabetes Mellitus DM T ype 1 Reason Comments Results Reason Comments Results Appointment Reason Onset Date Comments Refill Request 01/03/2023 Reason Comments Appointment Reason Onset Date Comments Refill Request 04/05/2023 Reason Comments type 1 diabetes Reason Onset Date Comments Refill Request 05/05/2023 Reason Comments Refill Request Reason Comments Type 1 Diabetes Due for labs and A1c Reason Comments Signal Helper - Other BMV request for statement of physician Reason Onset Date Comments Refill Request 04/23/2024 Reason Onset Date Comments Refill Request 05/18/2024 Reason Onset Date Comments Refill Request 05/28/2024 Reason Comments Insulin Dependent Diabetes Mellitus Reason Comments New Primary Care Pharmacy Reason Comments Ambulatory Social Work Reason Comments Medical Nutrition Therapy Type 1 Diabete s Specialty Diagnoses / Procedures Referred By Contac t Referred To Contact Diagnoses Poorly controlled type 1 diabetes mellitus (HCC) Procedures ENDOCRINOLOGY DIETITIAN VISIT (MNT) MEDICAL NUTRITION ASSMT&IVNTJ INDIV EACH 15 NC MEDICAL NUTRITION ASSMT&IVNTJ INDIV EACH 15 [place] MEDICAL NUTRITION ASSMT&IVNTJ INDIV EACH 15 [place] MEDICAL NUTRITION ASSMT&IVNTJ INDIV EACH 15 NC Laura Cook APRN.ORGAN FIXER [address] [place] [address] Phone: tel: fax: Referral ID Status Reason Start Date Expiration Date V isits Requested Visits Authorized [id number] Closed PCP Requested Referral 06/20/2024 06/20/2025 1 1 Reason Comments Patient Update Appointment out of [facility] Reason Onset Date Comments Refill Request 09/20/2024 Care Teams (unrecognized sec tion and content) Preparation Supervisor Canning Relationship Specialty Start Date End Date Letha Stokes MD [address] [place] [address] PCP - General Family Practice 10/13/17 Preparation Supervisor Canning Relationship Specialty Start Date End Date Letha Stokes MD [address] [place] [address] PCP - General Family Medicine 10/13/17 Preparation Supervisor Canning Relationship Specialty Start Date End Date Letha Stokes MD [address] [place] [address] PCP - General Family Medicine 10/13/17 Preparation Supervisor Canning Relationship Specialty Start Date End Date Letha Stokes MD [address] [place] [address] PCP - General Family Medicine 10/13/17 Preparation Supervisor Canning Relationship Specialty Start Date End Date Letha Stokes MD [address] [place] [address] PCP - General Family Medicine 10/13/17 Preparation Supervisor Canning Relationship Specialty Start Date End Date Letha Stokes MD [address] [place] [address] PCP - General Family Medicine 10/13/17 Preparation Supervisor Canning Relationship Specialty Start Date End Date Letha Stokes MD [address] [place] [address] PCP - General Family Medicine 10/13/17 Preparation Supervisor Canning Relationship Specialty Start Date End Date Letha Stokes MD [address] [place] [address] PCP - General Family Medicine 10/13/17 Preparation Supervisor Canning Relationship Specialty Start Date End Date Letha Stokes MD [address] [place] [address] PCP - General Family Medicine 10/13/17 Preparation Supervisor Canning Relationship Specialty Start Date End Date Letha Stokes MD [address] [place] [address] PCP - General Family Medicine 10/13/17 Preparation Supervisor Canning Relationship Specialty Start Date End Date Letha Stokes MD [address] [place] [address] PCP - General Family Medicine 10/13/17 Preparation Supervisor Canning Relationship Specialty Start Date End Date Letha Stokes MD [address] [place] [address] PCP - General Family Medicine 10/13/17 Preparation Supervisor Canning Relationship Specialty Start Date End Date Letah Stokes MD [address] [place] [address] PCP - General Family Medicine 10/13/17 Preparation Supervisor Canning Relationship Specialty Start Date End Date Letha Stokes MD [address] [place] [address] PCP - General Family Medicine 10/13/17 Lilia Garrett APRN.CNP [address] [place] [address] [facility] 04/28/24 Preparation Supervisor Canning Relationship Specialty Start Date End Date Letha Stokes MD [address] [facility] [place] [place] [address] PCP - General Family Medicine 10/13/17 Podlogar, STEPHEN RodriguesN.ORGAN FIXER [address] [facility] [place] [address] [facility] 04/28/24 Preparation Supervisor Canning Relationship Specialty Start Date End Date Letha Stokes MD [address] [facility] [place] [address] PCP - General Family Medicine 10/13/17 Podlogar, CHRISTIAN Rodrigues.ORGAN FIXER [address] [place] [address] [facility] 04/28/24 Preparation Supervisor Canning Relationship Specialty Start Date End Date Letha Stokes MD [address] [facility] [place] [address] PCP - General Family Medicine 10/13/17 Podlogar, STEPHEN RodriguesN.ORGAN FIXER [address] [place] [address] [facility] 04/28/24 Preparation Supervisor Canning Relationship Specialty Start Date End Date Letha Stokes MD [address] [place] [address] PCP - General Family Medicine 10/13/17 Podlogar, Lilia, PAPERHANGER P[employer]ER [address] [place] [address] Mail Service Coordinator Family [facility] 04/28/24 Preparation Supervisor Canning Relationship Specialty Start Date End Date Letha Stokes MD [address] [place] [address] PCP - General Family Medicine 10/13/17 Podlogar, Lilia, P[employer]HANGER [employer]ER [address] [place] [address] [facility] 04/28/24 Preparation Supervisor Canning Relationship Specialty Start Date End Date Letha Stokes MD [address] [place] [address] PCP - General Family Medicine 10/13/17 Podlogar, Lilia, P[employer]ER [employer]ER [address] [place] [address] [facility] 04/28/24 Preparation Supervisor Canning Relationship Specialty Start Date End Date Letha Stokes MD [address] [place] [address] PCP - General Family Medicine 10/13/17 Podlogar, Lilia, PAPERHANGER [employer]GAN FIXER [address] [place] [address] [facility] Preparation Supervisor Canning Relationship Specialty Start Date End Date Letha Stokes MD [address] [place] [address] PCP - General Family Medicine 10/13/17 Podlogar, Lilia, PAPERHANGER [employer]ER [address] [place] [address] Mail Service Coordinator Family Medicine 04/28/24 Korin Duque, PAPERHANGER [employer]ER [address] [place] [address] [facility] 08/13/24 Preparation Supervisor Canning Relationship Specialty Start Date End Date Letha Stokes MD [address] [place] [address] PCP - General Family Medicine 10/13/17 PodlogarLilia, PAPERHANGER [employer]ER [address] [place] [address] [facility] 04/28/24 Korin Duque PAPERHANGER [employer]ER [address] [place] [address] [facility] 08/13/24 Preparation Supervisor Canning Relationship Specialty Start Date End Date Letha Stokes MD [address] [place] [address] PCP - General Family Medicine 10/13/17 Podlogar, Lilia, PAPERHANGER [employer]ER [address] [place] [address] [facility] Medicine 04/28/24 Korin Duque PAPERHANGER [employer]ER [address] [place], [place] [id number] [facility] 08/13/24 Team Status: Active Member Role/Relationship Status Dates Dr. Yves Stokes MD Primary care physician Act bruce Team Status: Inactive Member Role/Relationship Status Dates Dr. Yves Stokes MD Primary care physician Act bruce Start: March 01, 2025 End: March 01, 2025 Dr. Susy Power MD Attending physician Active Start: March 01, 2025 End: March 01, 2025 Dr. Susy Power MD Emergency Departmen t Physician Active Start: March 01, 2025 End: March 01, 2025 Goals (unrecognized section and content) Goals may be documented in a n alternate section FOR RECORDS PERTAINING TO PATIENTS WHO ARE OR HAVE BEEN ENROLLED IN A CHEMICAL DEPENDENCY/SUBSTANCEABUSE PROGRAM, SOME INFORMATION MAY BE OMITTED. This clinical summary was aggregated from multiple sources. Caution should be exercised in using it in the provision of clinical care. This summary normalizes information from multiple sources, and as a consequence, information in this document may materially change the coding, format and clinical context of patient data. In addition, data may be omitted in some cases. CLINICAL DECISIONS SHOULD BE BASED ON THE PRIMARY CLINICAL RECORDS. [facility] [employer] provides no warranty or guarantee of the accuracy or completeness of information in this document.
[2025-05-01 01:47] VITALS: BP 158/87; PULSE 91; RESP 16; TEMP 36.4; O2SAT 100
== END 2025-05-01 01:48 | disposition home or self-care (01) ==
PROVIDERS: Emergency Provider Emergency Medicine; PCP Family Medicine; Visit Provider Emergency Medicine
DX: L02.414 Cutaneous abscess of left upper limb (principal); Z79.4 Long term (current) use of insulin; E10.9 Type 1 diabetes mellitus without complications; F17.210 Nicotine dependence, cigarettes, uncomplicated; I10 Essential (primary) hypertension
CPT/HCPCS: 10060; 99282